=== PATIENT | female | born 1980 | race Caucasian/White ===

== ENCOUNTER 2021-11-03 10:09 | Emergency (ER) | payer OTHER ==
[~2021-11-03] VITALS: Ht 154.9 cm; Wt 50.0 kg
[~2021-11-03 10:09] MED LIST: LORA-999 PO
[2021-11-03 10:16] VITALS: BP 129/89
[2021-11-03] MEDS ORDERED: PERTUSS(ACELL),DIPH,TET VAC/PF 0.5 ML SYRINGE IM. ONE (12:00)
[2021-11-03] MEDS ORDERED: ACETAMINOPHEN 500 MG TABLET PO ONE (12:00)
[2021-11-03] MEDS ORDERED: NEOMYCIN/BACITRACIN/POLYMYXIN B OINTMENT PACKET TP ONE (12:00)
== END 2021-11-03 13:41 | disposition home or self-care (01) ==
LOC: EMS 10:13
DX: S80.212A Abrasion, left knee, initial encounter (principal); S80.211A Abrasion, right knee, initial encounter; M25.512 Pain in left shoulder; F41.9 Anxiety disorder, unspecified; G43.909 Migraine, unspecified, not intractable, without status migrainosus; R07.81 Pleurodynia; Z88.0 Allergy status to penicillin; Z98.51 Tubal ligation status; Y04.8XXA Assault by other bodily force, initial encounter; Y93.89 Activity, other specified; Y92.89 Other specified places as the place of occurrence of the external cause; Y99.8 Other external cause status
CPT/HCPCS: 71046; 90471; 90715; 99284

== ENCOUNTER 2023-10-27 12:28 | Emergency (ER) | payer OTHER ==
[~2023-10-27] VITALS: Ht 162.6 cm; Wt 60.0 kg
[2023-10-27 12:32] VITALS: BP 117/74; PULSE 78; RESP 11; TEMP 99.4
[2023-10-27] MEDS ORDERED: FLUT16SP NASAL (14:02)
[2023-10-27] MEDS ORDERED: CETI10CA11 PO (14:02)
== END 2023-10-27 14:01 | disposition home or self-care (01) ==
LOC: EMS 12:31
DX: J32.9 Chronic sinusitis, unspecified (principal); R51.9 Headache, unspecified; J34.89 Other specified disorders of nose and nasal sinuses; Z88.0 Allergy status to penicillin
CPT/HCPCS: 99282; 99283